=== PATIENT | female | born 1960 | race Caucasian/White ===

== ENCOUNTER 2019-02-17 16:55 | Emergency (ER) | payer OTHER ==
[2019-02-17] MEDS ORDERED: NA CHLORIDE 0.9% 500 ML ONE (18:05)
[2019-02-17 18:31] LABS: Absolute Lymphocytes (CBC) 1.2 K/uL (0.7-4.9); Basophils % 0.4 % (0-1.3); Hematocrit 44.9 % (36.0-45.0); Lymphocytes % 17.8 % (15.3-44.8); MPV 10.2 fL (7.6-11.3); RBC Red Blood Cell Count 4.62 M/uL (3.86-4.86)
[2019-02-17 18:43] LABS: ALT/SGPT 18 U/L (12-78); AST/SGOT 12 U/L (15-37); Albumin 4.1 g/dL (3.4-5.0); Alkaline Phosphatase 79 U/L (45-117); BUN Blood Urea Nitrogen 15 mg/dL (7-18); Bicarbonate 27 mmol/L (21-32); Bilirubin Direct 0.1 mg/dL (0-0.2); Bilirubin Total 0.3 mg/dL (0.2-1.0); Glucose Level 88 mg/dL (74-106); Lipase 47 U/L (73-393); Magnesium 2.2 mg/dL (1.8-2.4); NT PRO-BNP 169 pg/mL (<125); Potassium 3.6 mmol/L (3.5-5.1); Protein, Total 8.1 g/dL (6.4-8.2); Sodium Level 131 mmol/L (136-145); Troponin (Emerg Dept Use Only) < 0.02 ng/mL (0.0-0.045)
--- NOTE | 2019-02-17 18:49 | RAD REPORT ---
EXAM DESCRIPTION: [place] Single View02/17/2019 6:30 pm CLINICAL HISTORY: cough COMPARISON: 2016 FINDINGS: The lungs appear clear of acute infiltrate. The heart is normal size IMPRESSION: No acute abnormalities displayed
--- NOTE | 2019-02-17 18:53 | RAD REPORT ---
EXAM DESCRIPTION: CT - Stone Protocol - 02/17/2019 6:24 pm CLINICAL HISTORY: Abdominal pain, diarrhea COMPARISON: None. TECHNIQUE: Axial 5 mm thick images were obtained without oral or IV contrast. The onuba-hx-mgzm span s the entirety of the system including uppermost abdomen and lung bases. All CT scans are performed using dose optimization technique as appropriate and may include automated exposure control or mA/KV adjustment according to patient size. FINDINGS: No hydronephrosis is present and no obstructing ureteral calculi. No suspicious renal mass es. Isodense masses and pyelonephritis are not excluded on a stone protocol CT scan. Urinary bladder is fully contracted. No bladder calculi seen. There several phleboliths along the pelvic floor. Uteru s and ovaries show no suspicious findings. No significant adrenal finding. Imaged portions of the liver, spleen and pancreas show no suspicious findings on non-contrast imaging . No gallbladder or biliary tree abnormality identified. No gastric dilatation or gastric wall thickening. No acute small bowel finding. No appendicitis findi ngs. Terminal ileum is normal in appearance. Numerous foci of hyperdense material scattered in the co dalila. This is probably bismuth containing or similar medication. Colon is not abnormally dilated. The colon does have tortuous course particularly in the sigmoid colon where there is a distended fluid-fi lled loops. Underlying mild colitis is certainly possible. Patient does not have a diverticulitis pat tern. No hernia, mass or bulky lymphadenopathy noted. No free air, free fluid or inflammatory stranding. No significant bony abnormality. IMPRESSION: Prominent but nondilated tortuous colon. A few scattered areas of suspected wall thicken ing seen and patient findings are suspicious for a mild pancolitis. No acute stomach or small bowel finding. No obstruction, free air or surgically emergent finding. Isodense masses and pyelonephritis are not excluded on stone protocol technique.
[2019-02-17] MEDS ORDERED: CIPROFLOXACIN 400mg IV 400 MG/200 ML BAG IV ONE (19:00)
--- NOTE | 2019-02-17 19:23 | ER ---
Nurse's Notes [facility] Name: Hina Martinez Age: 58 yrs Sex: Female : 1960 Arrival Date: 02/17/2019 Time: 16:58 Bed 15 Private MD: Diagnosis: Diarrhea, unspecified;Weakness;Abdominal tenderness;Left sided colitis-mild pancolitis Presentation: 02/17 17:04 Presenting complaint: Nonproductive cough, chills, hot flashes, diffuse abdominal pain, hb and diarrhea x 2 days. Transition of care: patient was not received from another setting of care. Onset of symptoms was February 16, 2019. Risk Assessment: Do you want to hurt yourself or someone else? Patient reports no desire to harm self or others. Initial Sepsis Screen: Does the patient meet any 2 criteria? No. Patient's initial sepsis screen is negative. Does the patient have a suspected source of infection? No. Patient's initial sepsis screen is negative. Care prior to arrival: None. 17:04 Method Of Arrival: Ambulatory hb 17:04 Acuity: BRITTANY 3 hb Historical: - Allergies: 17:07 No Known Allergies; hb - Home Meds: 17:07 Synthroid 88 mcg Oral tab 1 tab once daily [Active]; hb - PMHx: 17:07 short term memory loss; hb - PSHx: 17:07 Knee surgery; arm surgery - bilat; hb - Immunization history:: Adult Immunizations up to date. - Family history:: not pertinent. - Ebola Screening: : Patient negative for fever greater than or equal to 101.5 degrees Fahrenheit, and additional compatible Ebola Virus Disease symptoms. Screenin:14 Abuse screen: Denies threats or abuse. Denies injuries from another. Nutritional ss screening: No deficits noted. Tuberculosis screening: Never had TB. Fall Risk No fall in past 12 months (0 pts). No secondary diagnosis (0 pts). IV access (20 points). Ambulatory Aid- None/Bed Rest/Nurse Assist (0 pts). Gait- Normal/Bed Rest/Wheelchair (0 pts) Mental Status- Oriented to own ability (0 pts). Assessment: 17:10 General: Appears in no apparent distress. comfortable, Behavior is calm, cooperative, rb1 Reports chills for fatigue for 2-3 days. Pain: Complains of pain in abdomen Pain currently is 0 out of 10 on a pain scale. at worst was 7 out of 10 on a pain scale. Neuro: Level of Consciousness is awake, alert, obeys commands, Oriented to person, place, time, situation. Cardiovascular: Capillary refill < 3 seconds is brisk in bilateral fingers. Respiratory: Airway is patent Respiratory effort is even, unlabored, Respiratory pattern is regular, symmetrical. GI: Reports diarrhea. : No signs and/or symptoms were reported regarding the genitourinary system. Derm: Skin is pink, warm \T\ dry. Musculoskeletal: Range of motion: intact in all extremities. 18:10 Reassessment: Patient appears in no apparent distress at this time. Patient and/or rb1 family updated on plan of care and expected duration. Pain level reassessed. Patient is alert, oriented x 3, equal unlabored respirations, skin warm/dry/pink. Patient denies pain at this time. 19:21 Reassessment: Patient appears in no apparent distress at this time. Patient and/or jb4 family updated on plan of care and expected duration. Pain level reassessed. Patient is alert, oriented x 3, equal unlabored respirations, skin warm/dry/pink. D/c pending due to IV antibiotics. 20:15 Reassessment: Patient appears in no apparent distress at this time. Patient and/or jb4 family updated on plan of care and expected duration. Pain level reassessed. Patient is alert, oriented x 3, equal unlabored respirations, skin warm/dry/pink. Patient states feeling better. Vital Signs: 17:06 BP 125 / 83; Pulse 102; Resp 20; Temp 97.9; Pulse Ox 97% on R/A; Weight 52.16 kg; hb Height 4 ft. 11 in. (149.86 cm); Pain 8/10; 18:48 BP 121 / 90; Pulse 83; Resp 16; Pulse Ox 99% on R/A; Pain 0/10; rb1 20:00 BP 125 / 69; Pulse 83; Resp 16; Pulse Ox 99% on R/A; jb4 17:06 Body Mass Index 23.23 (52.16 kg, 149.86 cm) ED Course: 16:58 Patient arrived in ED. mr 17:06 Triage completed. hb 17:06 Arm band placed on. hb 17:10 Patient has correct armband on for positive identification. Placed in gown. Bed in low rb1 position. Call light in reach. Side rails up X 1. Pulse ox on. NIBP on. Warm blanket given. 17:35 Gurwinder Drake MD is Attending Physician. stephanie 18:14 Inserted saline lock: 20 gauge in right antecubital area, using aseptic technique. ss Blood collected. 18:30 CT Stone Protocol In Process Unspecified. EDMS 18:41 Carolina Santos, CHANI is Primary Nurse. rb1 18:45 XRAY Chest (1 view) In Process Unspecified. EDMS 19:00 Report given to CHANI Billings. rb1 19:21 Jhoan Field MD is Referral Physician. stephanie 19:22 Ivnaa Nunez MD is Referral Physician. stephanie 20:17 No provider procedures requiring assistance completed. IV discontinued, intact, jb4 bleeding controlled, No redness/swelling at site. Pressure dressing applied. Administered Medications: 18:14 Drug: NS 0.9% 500 ml Route: IV; Rate: bolus; Site: right antecubital; ss 19:16 Drug: Cipro 400 mg Volume: 200 ml; Route: IVPB; Infused Over: 60 mins; Site: right mg2 antecubital; 20:16 Follow up: Response: No adverse reaction; IV Status: Completed infusion; IV Intake: jb4 200ml 19:39 Drug: Flagyl 500 mg Volume: 100 ml; Route: IVPB; Rate: 200 ml/hr; Infused Over: 30 jb4 mins; Site: right antecubital; 20:09 Follow up: IV Status: Completed infusion; IV Intake: 100ml jb4 Intake: 20:09 IV: 100ml; Total: 100ml. jb4 20:16 IV: 200ml; Total: 300ml. jb4 Outcome: 19:22 Discharge ordered by . stephanie 20:17 Discharged to home ambulatory, with family. jb4 20:17 Condition: stable 20:17 Discharge instructions given to patient, Instructed on discharge instructions, follow up and referral plans. medication usage, Demonstrated understanding of instructions, follow-up care, medications, Prescriptions given X 3. 20:19 Patient left the ED. jb4 Signatures: Dispatcher [employer] EDHI Gurwinder Drake MD MD cha Rivera, Nel Duke RN RN Carolina Santos, RN RN rb1 Aissatou Caputo, RN RN hb Asaf Pham, RN RN jb4 Ramon Nguyen, RN RN mg2
--- NOTE | 2019-02-17 19:24 | EDPHYS ---
Physician Documentation [facility] Name: Hina Martinez Age: 58 yrs Sex: Female : 1960 Arrival Date: 02/17/2019 Time: 16:58 Bed 15 Private MD: CALDERON Physician Gurwinder Drake HPI: 02/17 17:59 This 58 yrs old Female presents to ER via Ambulatory with complaints of stephanie Diarrhea. 17:59 The patient presents to the emergency department with diarrhea, that is continuous. stephanie Onset: The symptoms/episode began/occurred today. Possible causes: unknown. The symptoms are aggravated by nothing. The symptoms are alleviated by nothing. Associated signs and symptoms: Pertinent positives: diarrhea. Severity of symptoms: At their worst the symptoms were mild in the emergency department the symptoms are unchanged. The patient has not experienced similar symptoms in the past. Historical: - Allergies: 17:07 No Known Allergies; hb - Home Meds: 17:07 Synthroid 88 mcg Oral tab 1 tab once daily [Active]; hb - PMHx: 17:07 short term memory loss; hb - PSHx: 17:07 Knee surgery; arm surgery - bilat; hb - Immunization history:: Adult Immunizations up to date. - Family history:: not pertinent. - Ebola Screening: : Patient negative for fever greater than or equal to 101.5 degrees Fahrenheit, and additional compatible Ebola Virus Disease symptoms. ROS: 17:59 Constitutional: Negative for fever, chills, and weight loss, Eyes: Negative for injury, stephanie pain, redness, and discharge, ENT: Negative for injury, pain, and discharge, Neck: Negative for injury, pain, and swelling, Cardiovascular: Negative for chest pain, palpitations, and edema, Respiratory: Negative for shortness of breath, cough, wheezing, and pleuritic chest pain, Back: Negative for injury and pain, : Negative for injury, bleeding, discharge, and swelling, MS/Extremity: Negative for injury and deformity, Skin: Negative for injury, rash, and discoloration, Neuro: Negative for headache, weakness, numbness, tingling, and seizure. 17:59 Abdomen/GI: Positive for diarrhea. Exam: 17:59 Constitutional: This is a well developed, well nourished patient who is awake, alert, stephanie and in no acute distress. Head/Face: Normocephalic, atraumatic. Eyes: Pupils equal round and reactive to light, extra-ocular motions intact. Lids and lashes normal. Conjunctiva and sclera are non-icteric and not injected. Cornea within normal limits. Periorbital areas with no swelling, redness, or edema. ENT: Nares patent. No nasal discharge, no septal abnormalities noted. Tympanic membranes are normal and external auditory canals are clear. Oropharynx with no redness, swelling, or masses, exudates, or evidence of obstruction, uvula midline. Mucous membranes moist. Neck: Trachea midline, no thyromegaly or masses palpated, and no cervical lymphadenopathy. Supple, full range of motion without nuchal rigidity, or vertebral point tenderness. No Meningismus. Chest/axilla: Normal chest wall appearance and motion. Nontender with no deformity. No lesions are appreciated. Respiratory: Lungs have equal breath sounds bilaterally, clear to auscultation and percussion. No rales, rhonchi or wheezes noted. No increased work of breathing, no retractions or nasal flaring. Abdomen/GI: Soft, non-tender, with normal bowel sounds. No distension or tympany. No guarding or rebound. No evidence of tenderness throughout. Back: No spinal tenderness. No costovertebral tenderness. Full range of motion. Female : Normal external genitalia. Skin: Warm, dry with normal turgor. Normal color with no rashes, no lesions, and no evidence of cellulitis. Neuro: Awake and alert, GCS 15, oriented to person, place, time, and situation. Cranial nerves II-XII grossly intact. Motor strength 5/5 in all extremities. Sensory grossly intact. Cerebellar exam normal. Normal gait. Psych: Awake, alert, with orientation to person, place and time. Behavior, mood, and affect are within normal limits. 17:59 Cardiovascular: Rate: tachycardic, Rhythm: regular, Pulses: no pulse deficits are appreciated, Heart sounds: normal, Edema: is not appreciated, JVD: is not appreciated. Vital Signs: 17:06 BP 125 / 83; Pulse 102; Resp 20; Temp 97.9; Pulse Ox 97% on R/A; Weight 52.16 kg; hb Height 4 ft. 11 in. (149.86 cm); Pain 8/10; 18:48 BP 121 / 90; Pulse 83; Resp 16; Pulse Ox 99% on R/A; Pain 0/10; rb1 20:00 BP 125 / 69; Pulse 83; Resp 16; Pulse Ox 99% on R/A; jb4 17:06 Body Mass Index 23.23 (52.16 kg, 149.86 cm) hb MDM: 17:35 Patient medically screened. [facility] 18:03 Data reviewed: vital signs, nurses notes, lab test result(s), EKG, radiologic studies, stephanie plain films. 02/17 17:58 Order name: Basic Metabolic Panel; Complete Time: 19:12 [facility] 02/17 17:58 Order name: CBC with Diff; Complete Time: 18:40 [facility] 02/17 17:58 Order name: LFT's; Complete Time: 19:12 [facility] 02/17 17:58 Order name: Magnesium; Complete Time: 19:12 [facility] 02/17 17:58 Order name: NT PRO-BNP; Complete Time: 19:12 [facility] 02/17 17:58 Order name: PT-INR; Complete Time: 18:40 [facility] 02/17 17:58 Order name: Troponin (emerg Dept Use Only); Complete Time: 19:12 [facility] 02/17 17:58 Order name: XRAY Chest (1 view) [facility] 02/17 17:58 Order name: Lipase; Complete Time: 19:12 [facility] 02/17 18:07 Order name: CT Stone Protocol [facility] 02/17 19:21 Order name: Urine Dipstick--Ancillary (enter results) em1 02/17 17:58 Order name: EKG; Complete Time: 18:01 [facility] 02/17 17:58 Order name: Cardiac monitoring; Complete Time: 18:09 [facility] 02/17 17:58 Order name: EKG - Nurse/Tech; Complete Time: 18:15 [facility] 02/17 17:58 Order name: IV Saline Lock; Complete Time: 18:14 [facility] 02/17 17:58 Order name: Labs collected and sent; Complete Time: 18:15 [facility] 02/17 17:58 Order name: O2 Per Protocol; Complete Time: 18:09 [facility] 02/17 17:58 Order name: O2 Sat Monitoring; Complete Time: 18:09 [facility] 02/17 17:58 Order name: Urine Dipstick-Ancillary (obtain specimen); Complete Time: 18:15 [facility] Administered Medications: 18:14 Drug: NS 0.9% 500 ml Route: IV; Rate: bolus; Site: right antecubital; 19:16 Drug: Cipro 400 mg Volume: 200 ml; Route: IVPB; Infused Over: 60 mins; Site: right mg2 antecubital; 20:16 Follow up: Response: No adverse reaction; IV Status: Completed infusion; IV Intake: jb4 200ml 19:39 Drug: Flagyl 500 mg Volume: 100 ml; Route: IVPB; Rate: 200 ml/hr; Infused Over: 30 jb4 mins; Site: right antecubital; 20:09 Follow up: IV Status: Completed infusion; IV Intake: 100ml jb4 Disposition: 02/17/19 19:22 Discharged to Home. Impression: Diarrhea, unspecified, Weakness, Abdominal tenderness, Left sided colitis - mild pancolitis. - Condition is Stable. - Discharge Instructions: Abdominal Pain, Adult, Food Choices to Help Relieve Diarrhea, Adult, Diarrhea, Adult, Weakness, Abdominal Pain, Adult, Scrp-cw-Khgo, Diarrhea, Adult, Qbuc-xu-Nwbk, Weakness, Tdyl-gq-Ukih. - Prescriptions for Bentyl 20 mg Oral Tablet - take 1 tablet by ORAL route every 6 hours As needed; 20 tablet. Flagyl 500 mg Oral Tablet - take 1 tablet by ORAL route every 8 hours for 10 days; 30 tablet. Cipro 500 mg Oral Tablet - take 1 tablet by ORAL route every 12 hours for 7 days; 21 tablet. - Medication Reconciliation Form, Thank You Letter, Antibiotic Education, Prescription Opioid Use form. - Follow up: Private Physician; When: 2 - 3 days; Reason: Recheck today's complaints, Continuance of care, Re-evaluation by your physician. Follow up: Jhoan Field; When: 2 - 3 days; Reason: Recheck today's complaints, Re-evaluation by your physician. Follow up: Ivana Nunez MD; When: 2 - 3 days; Reason: Recheck today's complaints, Re-evaluation by your physician. - Problem is new. - Symptoms have improved. Signatures: Dispatcher [employer] EDGurwinder Patel MD MD cha Smirch, Shelby, RN RN Carolina Santos RN CHANI [facility] Aissatou Caputo RN RN Asaf Pham RN RN jb4 Gardose, Ramon, RN RN mg2 Corrections: (The following items were deleted from the chart) 20:19 19:22 02/17/2019 19:22 Discharged to Home. Impression: Diarrhea, unspecified; Weakness; jb4 Abdominal tenderness; Left sided colitis - mild pancolitis. Condition is Stable. Discharge Instructions: Food Choices to Help Relieve Diarrhea, Adult, Diarrhea, Adult, Diarrhea, Adult, Zdai-pj-Kcjs, Abdominal Pain, Adult, Weakness, Abdominal Pain, Adult, Uknt-pj-Netz, Weakness, Vddb-vd-Oftv. Prescriptions for Bentyl 20 mg Oral Tablet - take 1 tablet by ORAL route every 6 hours As needed; 20 tablet, Cipro 250 mg Oral Tablet - take 1 tablet by ORAL route every 12 hours; 10 tablet. and Forms are Medication Reconciliation Form, Thank You Letter, Antibiotic Education, Prescription Opioid Use. Follow up: Private Physician; When: 2 - 3 days; Reason: Recheck today's complaints, Continuance of care, Re-evaluation by your physician. Follow up: Jhoan Field; When: 2 - 3 days; Reason: Recheck today's complaints, Re-evaluation by your physician. Follow up: Ivana Nunez; When: 2 - 3 days; Reason: Recheck today's complaints, Re-evaluation by your physician. Problem is new. Symptoms have improved. stephanie
[2019-02-17] MEDS ORDERED: METRONIDAZOLE 500mg IVPB 500 MG/100 ML BAG IV ONE (19:31)
[2019-02-17 20:44] LABS: Urine Blood NEGATIVE (NEG); Urine Glucose NEGATIVE (NEG); Urine Protein 1+ (NEG); Urine Specific Gravity >1.030 (1.005-1.030); Urine pH 5.5 (5.0-7.0)
[2019-02-17 21:34] VITALS: TEMP 97.9
[2019-02-17 21:36] VITALS: O2SAT 99
[2019-02-17 21:37] VITALS: BP 125/69
--- NOTE | 2019-02-18 08:04 | EKG ---
Test Date: 2019-02-17 Test Time: 18:16:43 Rn Otolaryngology: SHANTAL MEASUREMENT RESULTS: Intervals: Rate: 74 OK: 154 QRSD: 74 QT: 394 QTc: 437 [place]: P: 51 OK: 154 QRS: 73 T: -7 INTERPRETIVE STATEMENTS: Normal sinus rhythm Non specific T wave abnormality Abnormal ECG Compared to ECG 12/18/2013 06:54:53 T-wave abnormality now present Sinus bradycardia no longer present Sinus arrhythmia no longer present Myocardial infarct finding no longer present Electronically Signed On 02-18-19 08:04:06 CDT by Adeel Hanna
== END 2019-02-17 20:19 | disposition home or self-care (01) ==
LOC: ER 16:55
DX: K51.00 Ulcerative (chronic) pancolitis without complications (principal); K51.50 Left sided colitis without complications; R53.1 Weakness; R10.819 Abdominal tenderness, unspecified site
CPT/HCPCS: 96365; 96368; 93005; 85025; 80048; 36415; 83735; 85610; 80076; 81003; 84484; 83690; 83880; 76377; 74176; 71045; 99284; J0744

== ENCOUNTER 2021-05-22 09:34 | Emergency (ER) | payer OTHER ==
--- OUTSIDE RECORDS SUMMARY | 2021-05-22 09:37 | XMS REPORT | Continuity of Care Document ---
:1960 Author Organization [facility] t Address [address] [place] [address] Care Team Providers Name Role Phone Unavailable Unavailable Unavailable Problems This patient has no known problems. Allergies, Adverse Reactions, Alerts This patient has no known allergies or adverse reactions. Medications Ordered Filled Start Stop Current Ordering Indication Dosage Frequency Signature Comments Components Source Medication Medication Date Date Medication? Clinician (SIG) Name Name Levothyroxi Levothyroxi Yes Na Thakur [address] [facility] Sodium ne Sodium in the [place] es - morning on [facility] an empty l stomach Outpati ent Clinics Procedures This patient has no known procedures. Encounters Start End Encounter Admission Attending Care Care Encounter Source Date/Time Date/Time Type Type Clinicians Facility Department ID 2021-03-04 2021-03-04 Outpatient [facility] [id number] [facility] 2021-02-24 2021-02-24 Outpatient [facility] [id number] [facility] 2020-12-23 2020-12-23 Outpatient [facility] [id number] [facility] 2020-11-28 2020-11-28 Outpatient [facility] [id number] [facility] 2020-11-25 2020-11-25 Outpatient [facility] [id number] [facility] 2020-11-25 2020-11-25 [facility] [id number] [facility] 2020-11-25 2020-11-25 Out[facility] [id number] [facility] 2020-08-25 2020-08-25 Out[facility] [id number] [facility] 2020-06-04 2020-06-04 Out[facility] [id number] [facility] 2020-06-01 2020-06-01 Out[facility] [id number] [facility] 2020-04-05 2020-04-05 Outpatient [facility] [id number] [facility] 2019-12-28 2019-12-28 [facility] [id number] [facility] 09[facility] 09:40:00 [employer] [facility] 2019-10-28 2019-10-28 [facility] [id number] [facility] 09:[facility]00 09:00:00 [facility] [employer] [facility] 2019-10-01 2019-10-01 [facility] [id number] [facility] 11:20:00 11:20:00 [facility] [place] [facility] Results This patient has no known results.
[2021-05-22 11:14] LABS: SARS-COV-2 RT PCR NEGATIVE (NEGATIVE)
--- NOTE | 2021-05-22 11:26 | EDPHYS ---
Physician Documentation [facility] Name: Hina Martinez Age: 61 yrs Sex: Female : 1960 Arrival Date: 05/22/2021 Time: 09:38 Bed Waiting Private MD: Nicki Thakur ED Physician Gurwinder Drake HPI: 05/22 11:24 This 61 yrs old Female presents to ER via Ambulatory with complaints of Sore Throat, kb Shortness Of Breath. 11:24 Pt reports sore throat, cough and congestion for a week. kb 11:24 The patient presents with sore throat. The patient describes throat pain as constant. kb Onset: The symptoms/episode began/occurred 1 week(s) ago. Severity of symptoms: At their worst the symptoms were mild, moderate, in the emergency department the symptoms are unchanged. Modifying factors: The symptoms are alleviated by nothing, the symptoms are aggravated by swallowing, Patient's oral intake status: good. Associated signs and symptoms: Pertinent positives: cough, Sore throat. The patient has not experienced similar symptoms in the past. The patient has not recently seen a physician. Historical: - Allergies: 10:04 No Known Allergies; vg1 - Home Meds: 10:04 levothyroxine oral [Active]; vg1 - PMHx: 10:04 short term memory loss; Hypothyroidism; vg1 - PSHx: 10:04 None; vg1 - Immunization history:: Client reports receiving the 2nd dose of the Covid vaccine. - Social history:: Smoking status: Patient reports the use of cigarette tobacco products, smokes two packs cigarettes per day. ROS: 11:23 Constitutional: Negative for fever, chills, and weight loss. kb 11:23 ENT: Positive for rhinorrhea, sinus congestion, sore throat. 11:23 Respiratory: Positive for cough, Negative for dyspnea on exertion, hemoptysis, orthopnea, pleurisy, shortness of breath, sputum production, wheezing. 11:23 All other systems are negative. Exam: 11:24 Constitutional: This is a well developed, well nourished patient who is awake, alert, kb and in no acute distress. Head/Face: Normocephalic, atraumatic. ENT: Moist Mucous membranes Cardiovascular: Regular rate and rhythm with a normal S1 and S2. No gallops, murmurs, or rubs. No pulse deficits. Respiratory: Respirations even and unlabored. No increased work of breathing. Talking in full sentences Skin: Warm, dry with normal turgor. Normal color. MS/ Extremity: Pulses equal, no cyanosis. Neurovascular intact. Full, normal range of motion. Neuro: Awake and alert, GCS 15, oriented to person, place, time, and situation. Moves all extremities. Normal gait. Psych: Awake, alert, with orientation to person, place and time. Behavior, mood, and affect are within normal limits. 11:25 ENT: Posterior pharynx: erythema, that is moderate. kb Vital Signs: 10:02 BP 148 / 84; Pulse 72; Resp 16; Temp 98.4; Pulse Ox 100% ; Weight 55.34 kg; Height 4 vg1 ft. 11 in. (149.86 cm); Pain 0/10; 10:02 Body Mass Index 24.64 (55.34 kg, 149.86 cm) vg1 MDM: 10:06 Patient medically screened. kb 11:20 Data reviewed: vital signs, nurses notes. Data interpreted: Pulse oximetry: on room air kb is 100 %. Interpretation: normal. Counseling: I had a detailed discussion with the patient and/or guardian regarding: the historical points, exam findings, and any diagnostic results supporting the discharge/admit diagnosis, lab results, radiology results, the need for outpatient follow up, a family practitioner, to return to the emergency department if symptoms worsen or persist or if there are any questions or concerns that arise at home. 05/22 10:09 Order name: Strep; Complete Time: 10:52 vg1 05/22 10:09 Order name: COVID-19/FLU A+B (Document "Date of Onset" if Symptomatic); Complete Time: vg1 11:19 12 10:51 Order name: Throat Culture EDMS Administered Medications: No medications were administered Disposition: 05/23 06:53 Co-signature as Attending Physician, Gurwinder Drkae MD I agree with the assessment and stephanie plan of care. Disposition Summary: 05/22/21 11:25 Discharge Ordered Location: Home Condition: Stable kb Diagnosis - Acute pharyngitis, unspecified kb Followup: kb - With: Emergency Department - When: As needed - Reason: Worsening of condition Followup: kb - With: Private Physician - When: 2 - 3 days - Reason: Recheck today's complaints, Continuance of care, Re-evaluation by your physician Discharge Instructions: - Discharge Summary Sheet kb - Pharyngitis, [id number] kb Forms: - Medication Reconciliation Form kb - Thank You Letter kb - Antibiotic Education kb - Prescription Opioid Use kb Signatures: Dispatcher [employer] EDMiesha Mon, [employer] BUSINESS ANALYST-Gurwinder Burton MD MD cha Garcia, Victoria, RN RN vg1
--- NOTE | 2021-05-22 11:26 | ER ---
Nurse's Notes [facility] Name: Hina Martinez Age: 61 yrs Sex: Female : 1960 Arrival Date: 05/22/2021 Time: 09:38 Bed Waiting Private MD: Nicki Thakur Diagnosis: Acute pharyngitis, unspecified Presentation: 05/22 10:02 Chief complaint: Patient states: sore throat, cough and shortness of breath x 1 week; vg1 denies NVD. Coronavirus screen: Vaccine status: Patient reports receiving the 2nd dose of the covid vaccine. Client denies travel out of the [place] in the last 14 days. Ebola Screen: Patient negative for fever greater than or equal to 101.5 degrees Fahrenheit, and additional compatible Ebola Virus Disease symptoms. Initial Sepsis Screen: Does the patient meet any 2 criteria? No. Patient's initial sepsis screen is negative. Does the patient have a suspected source of infection? No. Patient's initial sepsis screen is negative. Risk Assessment: Do you want to hurt yourself or someone else? Patient reports no desire to harm self or others. Onset of symptoms was May 15, 2021. 10:02 Method Of Arrival: Ambulatory vg1 10:02 Acuity: BRITTANY 4 vg1 Triage Assessment: 10:04 General: Appears in no apparent distress. comfortable, Behavior is calm, cooperative. vg1 Pain: Denies pain. EENT: Throat is reddened. 10:04 Respiratory: Reports shortness of breath cough that is Airway is patent Respiratory vg1 effort is even, unlabored, Respiratory pattern is regular. Historical: - Allergies: 10:04 No Known Allergies; vg1 - Home Meds: 10:04 levothyroxine oral [Active]; vg1 - PMHx: 10:04 short term memory loss; Hypothyroidism; vg1 - PSHx: 10:04 None; vg1 - Immunization history:: Client reports receiving the 2nd dose of the Covid vaccine. - Social history:: Smoking status: Patient reports the use of cigarette tobacco products, smokes two packs cigarettes per day. Screenin:34 Abuse screen: Denies threats or abuse. Nutritional screening: No deficits noted. vg1 Tuberculosis screening: No symptoms or risk factors identified. Fall Risk None identified. Assessment: 11:33 Reassessment: Patient appears in no apparent distress at this time. No changes from vg1 previously documented assessment. Patient and/or family updated on plan of care and expected duration. Pain level reassessed. Patient is alert, oriented x 3, equal unlabored respirations, skin warm/dry/pink. Vital Signs: 10:02 BP 148 / 84; Pulse 72; Resp 16; Temp 98.4; Pulse Ox 100% ; Weight 55.34 kg; Height 4 vg1 ft. 11 in. (149.86 cm); Pain 0/10; 10:02 Body Mass Index 24.64 (55.34 kg, 149.86 cm) vg1 ED Course: 09:38 Patient arrived in ED. as 09:38 Nicki Thakur MD is Private Physician. as 10:04 Triage completed. vg1 10:04 Arm band placed on. vg1 10:06 [facility] Amin [facility]C [facility] kb 10:06 Gurwinder Drake MD is Attending Physician. kb 10:12 COVID swab sent to lab. Flu and/or RSV swab sent to lab. Strep swab sent to lab. vg1 11:34 No provider procedures requiring assistance completed. Patient did not have IV access vg1 during this emergency room visit. Administered Medications: No medications were administered Outcome: 11:25 Discharge ordered by . kb 11:34 Discharged to home ambulatory. vg1 11:34 Condition: stable 11:34 Discharge instructions given to patient, Instructed on discharge instructions, follow up and referral plans. Demonstrated understanding of instructions, follow-up care. 11:34 Patient left the ED. vg1 Signatures: Miesha Amin FNP-C FNP-Ckb Martinez, Amelia as Garcia, Victoria, RN RN vg1
[2021-05-22 11:41] VITALS: BP 148/84; TEMP 98.4; O2SAT 100
== END 2021-05-22 11:34 | disposition home or self-care (01) ==
LOC: ER 09:34
DX: J02.9 Acute pharyngitis, unspecified (principal); E03.9 Hypothyroidism, unspecified; F17.210 Nicotine dependence, cigarettes, uncomplicated; Z20.822 Contact with and (suspected) exposure to COVID-19
CPT/HCPCS: 87070; 87081; 0240U; 99283